=== PATIENT | male | born 1960 | race Hispanic/Latino ===

== ENCOUNTER 2022-05-03 04:06 | Emergency (ER) | payer SELFPAY ==
[~2022-05-03] VITALS: Ht 152.4 cm; Wt 122.5 kg
[2022-05-03] MEDS ORDERED: LISINOPRIL10 MG PO (04:17)
[2022-05-03] MEDS ORDERED: CYCLOBENZAPRINE10 MG PO (06:34)
[2022-05-03] MEDS ORDERED: METHYLPREDNISOLO4 M1 PO (06:43)
== END 2022-05-03 06:45 | disposition home or self-care (01) ==
LOC: ED 04:06
DX: M54.50 Low back pain, unspecified (principal); I10 Essential (primary) hypertension; Z79.899 Other long term (current) drug therapy
CPT/HCPCS: 36415; 74176; 80053; 81003; 83690; 85025; 96374; 96375; 96376; 99284-25; J1170; J1885; J2405; J7030; J7512